=== PATIENT | female | born 1995 | race Caucasian/White ===

== ENCOUNTER 2017-04-04 06:07 | Inpatient (IN) | payer OTHER, BC ==
[2017-04-04] MEDS ORDERED: PITOCIN 30 UNITS/ LR 500 ML 500 ML IV ONE (06:34)
[2017-04-04] MEDS ORDERED: OMNIPEN 2 GM / NACL 100ML 100 ML ONE (06:34)
[2017-04-04] MEDS ORDERED: Lactated Ringers 1,000 ML IV ONE ×2 (06:34→07:16)
[2017-04-04] MEDS ORDERED: XYLOCAINE 1% HCL 20 ML MDV IJ PRN (06:37)
[2017-04-04] MEDS ORDERED: Zofran 4 MG/2 ML VIAL IV PRN (06:37)
[2017-04-04] MEDS ORDERED: OMNIPEN 2 GM / NACL 100ML 100 ML IV ONE (06:37)
[2017-04-04] MEDS ORDERED: TYLENOL EXTRA STRENGTH 500 MG PO PRN (06:37)
[2017-04-04] MEDS ORDERED: PITOCIN 30 UNITS/ LR 500 ML 500 ML IV SCH (07:00)
[2017-04-04] MEDS ORDERED: Lactated Ringers 1,000 ML IV SCH (07:00)
[2017-04-04] MEDS ORDERED: Ephedrine Sulfate 50 MG/ML IV PRN (07:16)
[2017-04-04] MEDS ORDERED: OB EPIDURAL NAROPIN/SUFENTANIL IN NACL EPIDURAL PRN (07:16)
[2017-04-04 07:32] LABS: Mean Cell Volume 97.1 fl (78-100); Mean Platelet Volume 11.1 fl (6-9.5); Platelet Count 217 K/mm3 (150-450); Red Blood Count 4.07 M/mm3 (4.1-5.4); Red Cell Distribution Width 13.2 % (11.5-14.0)
[2017-04-04 07:33] LABS: Mean Corpuscular Hemoglobin 32.1 pg (26-32)
[2017-04-04 08:18] LABS: ANISOCYTOSIS 1+; BAND 1 % (0.0-2.0); Platelet Estimate NORMAL (NORMAL); Total Cells Counted 100; Toxic Granulation 1+
[2017-04-04] MEDS ORDERED: LANSINOH 40 GM TOP PRN (10:42)
[2017-04-04] MEDS ORDERED: Restoril 15 MG PO PRN (10:42)
[2017-04-04] MEDS ORDERED: NORCO 5/325 MG PO PRN (10:42)
[2017-04-04] MEDS ORDERED: Anucort-HC SUPPOSITORY PR PRN (10:42)
[2017-04-04] MEDS ORDERED: Ambien 10 MG PO PRN (10:42)
[2017-04-04] MEDS ORDERED: Dulcolax 10 MG SUPP PR PRN (10:42)
[2017-04-04] MEDS ORDERED: Dermoplast Spray TP PRN (10:42)
[2017-04-04] MEDS ORDERED: CORTISONE 1% CREAM TP PRN (10:42)
[2017-04-04] MEDS ORDERED: TUCKS TP PRN (10:42)
[2017-04-04] MEDS ORDERED: Adacel Vial IM ONE (10:42)
[2017-04-04] MEDS ORDERED: OMNIPEN 1GM / NaCl 100ML 100 ML IV SCH (11:00)
[2017-04-04] MEDS: MOTRIN 400 MG PO PRN (17:08)
[2017-04-04] MEDS: Colace 100 MG PO SCH (20:22)
[2017-04-05] MEDS: MOTRIN 400 MG PO PRN ×4 (00:58→21:02)
[2017-04-05 05:46] LABS: Mean Cell Volume 98.3 fl (78-100); Mean Corpuscular Hemoglobin 32.2 pg (26-32); Mean Platelet Volume 11.1 fl (6-9.5); Platelet Count 199 K/mm3 (150-450); Red Cell Distribution Width 13.6 % (11.5-14.0); White Blood Count 16.1 K/mm3 (4.0-10.5)
[2017-04-05 06:07] LABS: Total Cells Counted 100
[2017-04-05 06:08] LABS: Platelet Estimate NORMAL (NORMAL)
[2017-04-05] MEDS: TYLENOL EXTRA STRENGTH 500 MG PO PRN ×2 (06:57→12:00)
[2017-04-05] MEDS: Colace 100 MG PO SCH ×2 (09:22→21:02)
[2017-04-05] MEDS ORDERED: FERREX 150 PO SCH (10:00)
[2017-04-05] MEDS ORDERED: Mylicon 80MG PO PRN (16:56)
[2017-04-05] MEDS ORDERED: Mylicon 80MG ONE (16:59)
[2017-04-05] MEDS: ZOFRAN ODT 4 MG PO PRN (17:39)
[2017-04-06] MEDS: ZOFRAN ODT 4 MG PO PRN (05:06)
--- NOTE | 2017-04-06 11:50 | PCM.DS ---
Discharge Summary Date of Admission: 04/04/17 07:40 Admitting Physician: LUIZ LEWIS Consults: Consults on Case 04/04/17 07:16 Notify Anesthesia Provider Primary Care Provider: LUIZ LEWIS Allergies Allergies fentanyl Allergy (Mild, Verified 04/04/17 07:08) Hives tramadol Allergy (Mild, Verified 04/04/17 07:08) Hospital Summary - Hospital Course Hospital Course: late delivered via . Having some back pain s/p spinal. controlled with tylenol and ibuprofen. some nausea, thought to be SE of ibuprofen. D/c home today. - Vitals & Intake/Output Vital Signs: Vital Signs Temperature 97.7 F 04/06/17 02:00 Pulse Rate 64 04/06/17 08:00 Respiratory Rate 16 04/06/17 08:00 Blood Pressure 109/66 04/06/17 08:00 O2 Sat by Pulse Oximetry Intake & Output: Intake & Output 04/03/17 04/04/17 04/05/17 04/06/17 11:59 11:59 11:59 11:59 Intake Total 2100 600 Balance 2100 600 Weight 63.957 kg - Lab Result Diagrams: 04/05/17 04:58 Discharge Exam General Appearance: no apparent distress Neurologic Exam: alert, oriented x 3, cooperative Skin Exam: normal color, warm, dry Neck Exam: normal inspection, non-tender, No lymphadenopathy Respiratory Exam: normal breath sounds, lungs clear, No crackles/rales, No rhonchi, No wheezing Cardiovascular Exam: regular rate/rhythm, normal heart sounds, No murmur Gastrointestinal/Abdomen Exam: soft, other (fundus firming under umbilicus) Extremity Exam: normal inspection, No pedal edema, No swelling Back Exam: normal inspection Final Diagnosis/Problem List - Final Discharge Diagnosis/Problem (1) Vaginal delivery Current Visit: Yes Status: Acute Assessment & Plan: Doing great, anemia is mild. F/u with me in 4-6 weeks. - Discharge Disposition: Home, Self-Care Condition: Stable Prescriptions: No Action No Reportable Medications [No Reported Medications] Additional Instructions: return to OB on SunApril 07 & SunApril 08 for follow up for wt check. . Nurse infant every 2 h, supplement w formula after nursing with syringe feeding Infant has appointment w Dr Lewis on April 10 @[id number] Follow up with: LUIZ LEWIS [Primary Care Provider] - 1 Week Forms: OB Discharge Instructions
[2017-04-06 12:47] VITALS: BP 115/61; PULSE 71; O2SAT 97
== END 2017-04-06 11:30 | disposition home or self-care (01) | DRG 775 ==
LOC: OB 06:07 → OBSVTOIN 07:40
PROVIDERS: ADMIT Family Medicine; ATTEND Family Medicine
PROC: 10E0XZZ Delivery of Products of Conception, External Approach (ICD-10-PCS; principal; 2017-04-04)
DX: O80 Encounter for full-term uncomplicated delivery (principal); Z3A.37 37 weeks gestation of pregnancy; Z37.0 Single live birth; D64.9 Anemia, unspecified
CPT/HCPCS: 01967; 36415; 80307; 85025; 90384; 90715; 94799; G0378; J0290; J2590; Q0162; A9270-GY